=== PATIENT | male | born 1990 | race Two or more races ===

== ENCOUNTER 2025-08-29 08:49 | Emergency (ER) | payer BC | END 2025-08-29 10:28 | disposition home or self-care (01) | LOC: MW.ED 08:49 | DX: S86.811A Strain of other muscle(s) and tendon(s) at lower leg level, right leg, initial encounter (principal); Z88.0 Allergy status to penicillin; X58.XXXA Exposure to other specified factors, initial encounter | CPT/HCPCS: 73562-26-RT; 73562-RT; 93971-26-RT; 93971-RT; 99283; 99284 ==